=== PATIENT | female | born 1950 | race Caucasian/White ===

== ENCOUNTER 2022-04-26 10:48 | Emergency (ER) | payer MEDICARE, OTHER, SELFPAY ==
[2022-04-26] VITALS (11 sets, daily range): BP systolic 122–135; BP diastolic 40–104; PULSE 70–90; RESP 15–19; TEMP 36.6; O2SAT 96–100
--- NOTE | 2022-04-26 10:45 | RT.EKG_ITS ---
APPROVED REPORT Exam: Resting ECG Reason for Exam: syncope Patient Location: E HR:78 bpm ECG Measurements Heart Rate 78 AXIS AZ 179 P 52 QRSd 98 QRS 58 QT 381 T 54 QTc 434 Conclusion Sinus rhythm...normal P axis, V-rate 60- 99 sinus rhythm, normal axis, normal intervals, non ischemic
--- NOTE | 2022-04-26 11:20 | ED.GENADUL_ITS ---
Discharge Plan Disposition Patient Disposition: HOME Condition: Improving Discharge Details Chief Complaint: Nausea/Vomit/Diar Clinical Impression: Acute dehydration, Near syncope Primary Care Provider: Robert Lopez ED Provider: Randal Chopra Home Meds and New Rx's Prescriptions: No Action cranberry conc-ascorbic acid [Cranberry Concentrate] 1 EACH capsule 1 ea PO DAILY levothyroxine 112 MCG tablet 112 mcg PO DAILY atorvastatin [Lipitor] 20 MG tablet 40 mg PO DAILY metoprolol succinate 50 MG tablet extended release 24 hr 50 mg PO DAILY amlodipine 5 MG tablet 5 mg PO DAILY metformin 500 MG tablet extended release 24 hr 500 mg PO BID desipramine [Norpramin] 75 MG tablet 75 mg PO DAILY ramipril 10 MG capsule 20 mg PO DAILY omeprazole [Prilosec] 20 MG capsule,delayed release(DR/EC) 20 mg PO DAILY Zyrtec 10 MG capsule 10 mg PO DAILY budesonide-formoterol [Symbicort] 1 PUFF HFA aerosol inhaler 1 puff Inhalation PRN PRN triamcinolone acetonide 15 GM cream 1 applic Topical PRN PRN ciprofloxacin HCl [Cipro] 500 MG tablet 500 mg PO BID Qty: 14 0RF phenazopyridine [Pyridium] 100 MG tablet 100 mg PO TID Qty: 6 0RF Discharge Instructions Instructions: Dehydration (ED), Near Syncope (ED) Additional Instructions: Please follow-up with your primary care physician. Please return to the emergency department for any worsening symptoms Medical Decision Making 71-year-old female history of alcoholism presents after near syncopal episode in the toilet while having a bowel movement this morning, multiple loose bowel movements approximately 5 in nature brown in color, nonblack nonbloody nonmucoid, slumped forward on the toilet was caught by her no trauma. Patient is alert and oriented no acute distress denies headache chest pain abdominal pain nausea or vomiting currently does appear slightly ashen and dry, dry oral mucosa hemodynamically stable afebrile nontoxic does not appear intoxicated. Consider dehydration in the setting of diarrhea versus vasovagal episode in the setting of bowel movement versus electrolyte abnormality versus unlikely acute cardiac process such as ACS versus unlikely CVA. No evidence of active infection at this time. Must also consider hangover. Screening labs troponin EKG fluids and antiemetics close reassessment likely home with close follow-up 12: 45 patient resting comfortably color and energy greatly improved after fluids. Likely component of mild dehydration. Home care instructions and return precautions given HPI General Date/Time Provider Initiated Documentation: 04/26/22 10:56 . HPI Narrative: 71-year-old female history of alcohol abuse presents after presyncopal episode while on the toilet having a bowel movement this morning, multiple loose brown stools this morning approximately 5 in nature no blood no mucus and nonblack. [place] presyncopal but forward assisted her no trauma. Denies headache chest pain shortness of breath. Endorses drinking a bottle of wine last night Related Data Home Medications Medication Instructions Recorded Confirmed amlodipine 5 mg tablet 5 mg PO DAILY 04/08/14 04/26/22 atorvastatin 20 mg tablet (Lipitor) 40 mg PO DAILY 04/08/14 04/26/22 budesonide-formoterol HFA 80 1 puff inhalation PRN PRN 04/08/14 04/26/22 mcg-4.5 mcg/actuation aerosol inhaler (Symbicort) cetirizine 10 mg capsule (Zyrtec) 10 mg PO DAILY 04/08/14 04/26/22 ciprofloxacin HCl 500 mg tablet 500 mg PO BID ##14 04/08/14 (Cipro) cranberry concentrate-ascorbic 1 ea PO DAILY 04/08/14 04/08/14 acid 140 mg-100 mg capsule (Cranberry Concentrate) desipramine 75 mg tablet 75 mg PO DAILY 04/08/14 04/08/14 (Norpramin) levothyroxine 112 mcg tablet 112 mcg PO DAILY 04/08/14 04/26/22 metformin 500 mg tablet,extended 500 mg PO BID 04/08/14 04/26/22 release 24 hr metoprolol succinate 50 mg 50 mg PO DAILY 04/08/14 04/26/22 tablet,extended release 24 hr omeprazole 20 mg capsule,delayed 20 mg PO DAILY 04/08/14 04/26/22 release (Prilosec) phenazopyridine 100 mg tablet 100 mg PO TID ##6 04/08/14 (Pyridium) ramipril 10 mg capsule 20 mg PO DAILY 04/08/14 04/26/22 triamcinolone acetonide 0.1 % 1 applic topical PRN PRN 08/15/14 08/15/14 topical cream Previous Rx's Medication Instructions Recorded ciprofloxacin HCl 500 mg tablet 500 mg PO BID ##14 04/08/14 (Cipro) phenazopyridine 100 mg tablet 100 mg PO TID ##6 04/08/14 (Pyridium) Allergies Allergy/AdvReac Type Severity Reaction Status Date / Time shellfish derived Allergy Severe Swelling/Ed Unverified 04/26/22 11:06 [email or web address] General Stated Complaint: Nausea/Vomit/Diar ARIC: 3 Review of Systems Narrative: Review of Systems Constitutional: negative Eyes: negative ENT: negative Cardiovascular: Near syncope Respiratory: negative Gastrointestinal: Diarrhea : negative Musculoskeletal: negative Skin: negative Neurologic: negative Psych: negative PFSH All Active Problems (Updated 04/26/22 @ 12:46 by Randal Chopra MD) Acute dehydration (Acute) Near syncope (Acute) Social History Smoking/Tobacco Use Status: Former Tobacco Use Smoking risk assessment performed?: Yes Alcohol Intake: never Drug use: Never Substance use type: does not use Do you feel safe at home: Yes Do you feel safe in your relationship?: Yes Exam Narrative Exam Narrative: Physical Examination General: alert, awake, cooperative, resting comfortably, no acute distress HEENT: normocephalic, atraumatic; PERRL, EOM intact, conjunctiva normal; no nasal discharge; slight drying of oral mucosa Neck: supple, trachea midline; full ROM Chest: normal to inspection Respiratory: normal respiratory effort, speaking in full sentences, clear to auscultation, no wheezing, rales or rhonchi Cardiac: regular rate, regular rhythm, S1S2 intact, no murmurs rubs or gallops GI: abdomen soft, non-tender, non-distended; no palpable mass or hepatosplenomegaly Skin: Dry slightly ashen skin, no lesions, rashes or trauma appreciated Neuro: AAOx3, normal speech, moving all extremities Psych: Appropriate mood and affect Course Vital Signs Vital signs: Vital Signs Temperature 36.6 C 04/26/22 10:56 Pulse 70 04/26/22 10:56 Respiratory Rate 18 04/26/22 10:56 Blood Pressure 122/74 04/26/22 10:56 Pulse Oximetry 99 04/26/22 10:56 Temperature 36.6 C 04/26/22 10:56 Temperature Source Temporal Artery Scan 04/26/22 10:56 Pulse 70 04/26/22 10:56 Respiratory Rate 18 04/26/22 10:56 Respiratory Effort Non-Labored 04/26/22 11:00 Blood Pressure 122/74 04/26/22 10:56 Blood Pressure Position Sitting 04/26/22 10:56 Pulse Oximetry 99 04/26/22 10:56 Oxygen Delivery Method Room Air 04/26/22 10:56 Oxygen Flow Rate 0 04/26/22 10:56 PAWSS Have you Been Recently Intoxicated or Drunk Within the Last 30 days?: Yes Have you Ever Experienced Previous Episodes of Alcohol Withdrawal?: No Have you ever Experienced Withdrawal Seizures?: No Have you ever Experienced Delirium Tremens(DT)s?: No Have you ever undergone Alcohol Rehabilitation Treatment (i.e, inpt ot outpatient treatment programs)?: No Have you ever Experienced Blackouts?: No Have you ever Combined Alcohol with other Downers within the last 90 days?: No Have you ever Combined Alcohol with any other Substance of Abuse during the last 90 days?: No Positive Blood Alcohol level on Presentation? [PCS.BAL]: No Evidence of Increased Autonomic Activity (i.e. HR>120, tremor, sweating, agitation, nausea)?: No Result: 1
[2022-04-26] MEDS: Ondansetron 4 MG/2 ML VIAL IVP (11:31)
[2022-04-26] MEDS: Normal Saline 1,000 ML 1000 ML IV (11:31)
[2022-04-26 11:40] LABS: Abs Immature Grans 0.03 10^3/uL (0.0-0.06); Absolute Basophil Count 0.03 10^3/uL (0.0-0.2); Absolute Eosinophil Count 0.03 10^3/uL (0.0-0.7); Absolute Lymphocyte Count 0.55 10^3/uL (1.2-3.4); Absolute Monocyte Count 0.53 10^3/uL (0.1-0.8); Absolute Neutrophil Count 6.37 10^3/uL (1.2-6.7); Basophils % 0.4; Eosinophils % 0.4; HCT 35.2 % (36.0-46.0); HGB 12.9 g/dL (11.2-15.7); Immature Grans % 0.4; Lymphocytes % 7.3; MCH 36.3 pg (27.0-33.0); MCHC 36.6 % (32.0-36.0); MCV 99 fL (80-95); MPV 10.4 fL (8.0-11.0); Neutrophils % 84.5; Platelet Count 234 10^3/uL (130-400); RBC 3.55 10^6/uL (3.93-5.22); RDW 11.4 % (11.7-14.6); RDW-SD 41.3 fL; WBC 7.54 10^3/uL (4.4-10.8)
[2022-04-26 12:01] LABS: ALT 36 U/L (14-59); AST 37 U/L (15-37); Albumin 3.6 g/dL (3.4-5.0); Alkaline Phosphatase 93 U/L (46-116); Anion Gap 12.6 mmol/L (3-11); BUN 23 mg/dL (7-18); Bilirubin, Total 0.6 mg/dL (0.2-1.0); CO2 22.4 mmol/L (21.0-32.0); CREATININE 1.8 mg/dL (0.55-1.02); Chloride 98 mmol/L (98-107); Estimated GFR 29.38 (mL/min/1.73m2); Glucose 101 mg/dL (74-106); Potassium 3.9 mmol/L (3.5-5.1); Sodium 133 mmol/L (136-145); Total Protein 7.2 g/dL (6.4-8.2); Troponin I < 50 ng/L (<or=60)
== END 2022-04-26 12:57 | disposition home or self-care (01) ==
PROVIDERS: Emergency Provider Emergency Medicine
DX: R55 Syncope and collapse (principal); E86.0 Dehydration; Z87.891 Personal history of nicotine dependence
CPT/HCPCS: 36415; 80053; 93005; 96361; 96374; 99284; 84484; 85025; 93010; J2405

== ENCOUNTER 2025-03-01 11:36 | Outpatient (CLI) | payer MEDICARE, OTHER, SELFPAY ==
[2025-03-01 13:07] LABS: TSH 0.39 uIU/mL (0.36-3.74)
[2025-03-02 08:14] LABS: T3,Free 2.4 pg/mL (2.8-5.3)
== END 2025-03-01 11:37 | disposition home or self-care (01) ==
LOC: LBO 11:36
PROVIDERS: Visit Provider Family Medicine
DX: E05.90 Thyrotoxicosis, unspecified without thyrotoxic crisis or storm (principal)
CPT/HCPCS: 36415; 84439; 84443; 84481